=== PATIENT | male | born 1985 | race Caucasian/White ===

== ENCOUNTER 2018-11-20 08:02 | Emergency (ER) | payer BC, OTHER ==
--- NOTE | 2018-11-20 08:30 | ED.PDOC ---
History of Present Illness - General Chief Complaint: General Stated Complaint: body aches, congestion, cough Time Seen by Provider: 11/20/18 08:19 Source: patient Exam Limitations: no limitations - History of Present Illness Initial Comments: Mina Lewis 33 y/o male came to ER with nasal congestion ,body aches occasional dry cough for the last 2 days.No ill contact ,no outside travel -[place] also denies medical problem. Timing/Duration: other - 2 days Severity: moderate Improving Factors: nothing, eating Associated Symptoms: other - see hpi Allergies/Adverse Reactions: Allergies NO KNOWN ALLERGY Allergy (Verified 09/27/15 17:29) Home Medications: Ambulatory Orders Azithromycin [Zithromax Z-Rashid] 250 mg PO DAILY 6 Days #6 tab 11/20/18 Review of Systems - Review of Systems Constitutional: States: no symptoms reported EENTM: States: see HPI Respiratory: States: see HPI, cough Cardiology: States: no symptoms reported Gastrointestinal/Abdominal: States: no symptoms reported Genitourinary: States: no symptoms reported Musculoskeletal: States: see HPI, muscle pain All other Systems: Reviewed and Negative, No Change from Baseline Past Medical History (General) - Patient Medical History Hx Stroke: No Hx Asthma: No Hx of COPD: No Hx Congestive Heart Failure: No Hx Hypertension: No Hx Diabetes: No Surgical History: other - shoulder right - Vaccination History Hx Tetanus, Diphtheria Vaccination: Yes Hx Influenza Vaccination: No Hx Pneumococcal Vaccination: No Immunizations Up to Date: Yes - Social History Hx Tobacco Use: Yes Cigarettes Packs Per Day: 1 Hx Alcohol Use: No Hx Substance Use: No Hx Depression: No Hx Physical Abuse: No Hx Emotional Abuse: No Family Medical History - Family History Mother Family History: No Known Living Status: Still Living Hx Cardiac Disease: Yes - mom Hx Family Diabetes: Yes - brother,mom Physical Exam - Physical Exam General Appearance: Alert, Comfortable, No apparent distress Eye Exam: bilateral normal Ears, Nose, Throat: hearing grossly normal, normal ENT inspection, normal pharynx Neck: non-tender, full range of motion, supple Respiratory: lungs clear, normal breath sounds, no respiratory distress Cardiovascular/Chest: normal peripheral pulses, regular rate, rhythm, no murmur Peripheral Pulses: radial,right: 2+, radial,left: 2+ Gastrointestinal/Abdominal: non tender, soft, no organomegaly Back Exam: no CVA tenderness, no vertebral tenderness Extremity: no pedal edema, no calf tenderness Neurologic: alert, oriented x 3 Skin Exam: normal color, warm/dry Progress - Progress Progress: 11/20/18 08:32 Vital Signs - 8 hr 11/20/18 11/20/18 08:14 08:22 Temperature 99.4 F Pulse Rate [ 83 Left Radial] Respiratory 18 18 Rate Blood Pressure 128/85 [Left Arm] O2 Sat by Pulse 97 Oximetry - Results/Orders Results/Orders: Flu swab -negative discussed with patient Departure - Departure Clinical Impression: Upper respiratory infection Qualifiers: URI type: unspecified URI Qualified Code(s): J06.9 - Acute upper respiratory infection, unspecified Time of Disposition: 09:33 Disposition: Discharge to Home or Self Care Departure Forms: ED Discharge - Pt. Copy, ED Discharge - Work Release, Patient Portal Self Enrollment Instructions: Smoking: Not Just Harmful to Your Lungs and Heart, Cough, Runny Nose, and the Common Cold (DC), Cough, Runny Nose, and the Common Cold Prescriptions: Azithromycin [Zithromax Z-Rashid] 250 mg PO DAILY 6 Days #6 tab Home Medications: Ambulatory Orders Azithromycin [Zithromax Z-Rashid] 250 mg PO DAILY 6 Days #6 tab 11/20/18 Additional Instructions: May use the following OVER THE COUNTER MEDICATIONS:Afrin Nose [place]-2 sprays each nose AM/PM 3 days on 3 days off for nasal congestion until better;Nasal Saline [place] -3-4 sprays each nostril 3 x a day for nasal congestion as needed until better;ALEVE 1-2 tablets am/pm for pain,headache,discomfort;Cough /Cold medication Nyquil -(Daytime/Nightime )relief as directed on package insert;Follow up with your primary Md 22 Nov 2018 for recheck Need to quit smoking
[2018-11-20 09:26] VITALS: BP 124/83
--- NOTE | 2018-11-20 09:28 | RAD ---
EXAM DESCRIPTION: Chest,1 View CLINICAL HISTORY: cough COMPARISON: None. FINDINGS: Cardiac silhouette is within normal limits. There is no focal parenchymal or pleural disease. Visualized osseous structures are within normal limits. IMPRESSION: No evidence of acute cardiopulmonary disease. 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
[2018-11-20 09:49] VITALS: TEMP 98.9; O2SAT 95
== END 2018-11-20 09:49 | disposition home or self-care (01) ==
LOC: ER 08:02
DX: J06.9 Acute upper respiratory infection, unspecified (principal); Z87.891 Personal history of nicotine dependence